=== PATIENT | female | born 1960 ===

== ENCOUNTER 2017-11-05 16:30 | Emergency (ER) | payer SELFPAY ==
[2017-11-05 16:43] VITALS: BP 113/70; PULSE 60; RESP 18; TEMP 98.1; O2SAT 98
--- NOTE | 2017-11-05 17:31 | ED PDOC ---
HPI: Female Pain Time Seen by Provider: 11/05/17 16:43 Chief Complaint (Nursing): Female Genitourinary Chief Complaint (Provider): Female Genitourinary History Per: Patient History/Exam Limitations: no limitations Onset/Duration Of Symptoms: Days Current Symptoms Are (Timing): Still Present Additional Complaint(s): 57 year old female presents to the ED with complaints of dysuria and urinary frequency associated with suprapubic abdominal pain and a mild discomfort to the lower back. Otherwise: (-) fever, (-) chills, (-) vomiting, (-) hematuria, ( -) nausea. PMD: None Provided Past Medical History Reviewed: Historical Data, Nursing Documentation, Vital Signs Vital Signs: Last Vital Signs Temp 98.1 F 11/05/17 16:38 Pulse 60 11/05/17 16:38 Resp 18 11/05/17 16:38 BP 113/70 11/05/17 16:38 Pulse Ox 98 11/05/17 16:38 - Medical History PMH: No Chronic Diseases - Surgical History Surgical History: No Surg Hx - Family History Family History: States: Unknown Family Hx - Home Medications Home Medications: Ambulatory Orders Medication Instructions Recorded Sulfamethoxazole/Trimethoprim 1 tab PO BID #14 tab 11/05/17 [Bactrim DS 800 mg-160 mg] - Allergies Allergies/Adverse Reactions: Allergies Allergy/AdvReac Type Severity Reaction Status Date / Time aspirin Allergy ITCHING Verified 11/05/17 16:38 Review of Systems ROS Statement: Except As Marked, All Systems Reviewed And Found Negative Constitutional: Negative for: Fever Gastrointestinal: Positive for: Abdominal Pain (suprapubic). Negative for: Nausea, Vomiting Genitourinary Female: Positive for: Dysuria, Frequency. Negative for: Hematuria Musculoskeletal: Positive for: Back Pain (mild discomfort to lower back ) Physical Exam - Reviewed Nursing Documentation Reviewed: Yes Vital Signs Reviewed: Yes - Physical Exam Comments: GENERAL APPEARANCE: Patient is awake, alert, oriented x 3, in no acute distress. SKIN: Warm, dry; (-) cyanosis. EYES: (-) conjunctival pallor. ENMT: Mucous membranes moist. Airway patent: (-) stridor. Pharynx: (-) swelling, (-) erythema. NECK: (-) tenderness, (-) stiffness, (-) lymphadenopathy. CHEST AND RESPIRATORY: (-) wheezing; (-) rales, (-) rhonchi, (-) rub; breath sounds equal bilaterally. HEART AND CARDIOVASCULAR: (-) irregularity; (-) murmur, (-) gallop. ABDOMEN AND GI: Soft; (-) tenderness. BACK: (-) CVA tenderness. EXTREMITIES: (-) deformity, (-) edema. NEURO AND PSYCH: Mental status as above; (-) focal findings. - ECG O2 Sat by Pulse Oximetry: 98 (RA) Pulse Ox Interpretation: Normal Medical Decision Making Medical Decision Making: Time: 1643 Plan: -- ED Urine Dipstick Time: 1707 Plan: -- ED Urine Dipstick Time: 1711 Plan: -- Urine Culture -- Urinalysis UA: Results show signs of positive UTI. Advised to follow up with the clinic in 1-2 days without fail. Advised to take medication as prescribed. Return to the emergency room at any time for any new or worsening symptoms. Patient states she fully agrees with and understands discharge instructions. States that she agrees with the plan and disposition. Verbalized and repeated discharge instructions and plan. I have given the patient opportunity to ask any additional questions. Scribe Attestation: Documented by Jamie Ramos, acting as a scribe for Deana Paz PA-C. Provider Scribe Attestation: All medical record entries made by the Scribe were at my direction and personally dictated by me. I have reviewed the chart and agree that the record accurately reflects my personal performance of the history, physical exam, medical decision making, and the department course for this patient. I have also personally directed, reviewed, and agree with the discharge instructions and disposition. Disposition - Clinical Impression Clinical Impression: Urinary tract infection - Patient ED Disposition Is Patient to be Admitted: No Counseled Patient/Family Regarding: Studies Performed, Diagnosis, Need For Followup, Rx Given - Disposition Referrals: [facility] [Outside] Disposition: Routine/Home Disposition Time: 17:15 Condition: GOOD Additional Instructions: Malia por dejarnos atenderlo hoy. Te trataron por janay infeccin del tracto urinario. La atencin mdica de emergencia que recibi hoy estaba dirigida a vika sntomas agudos. Si le prescribieron algn medicamento, llnelo y tome seg n las indicaciones. Vika sntomas pueden tardar varios herrera en resolverse. Regrese al Departamento de Emergencia si vika sntomas empeoran, no mejoran o si tiene algn otro problema. Llame a navid de los mdicos / clnicas a los que warren recomendado que se detallan en el formulario de Informacin de visita del paciente que se incluye en torres paquete de conchis. Traiga todos los documentos que recibi al momento del conchis junto con los medicamentos que est tomando en torres visita de seguimiento. Nuestro tratamiento no puede reemplazar la atencin mdica en curso por parte de un proveedor de atencin primaria (PCP) fuera del departamento de emergencias. Malia por permitir que el equipo de [facility] [employer] sea parte de torres cuidado hoy. Si se realiz janay prueba de cultivo de orina: lo llamaremos para informarle cualquier resultado positivo Prescriptions: Sulfamethoxazole/Trimethoprim [Bactrim DS 800 mg-160 mg] 1 tab PO BID #14 tab Instructions: Urinary Tract Infection, Adult (DC) Forms: [employer] (Sinhala) Print Language: MACEDONIAN - PA / LOCATION MAN / Resident Statement / has reviewed & agrees with the documentation as recorded.
[2017-11-05 17:51] LABS: SQUAMOUS EPITHIAL 5 /hpf (0-5); URINE BACTERIA RARE (<OCC); URINE BILIRUBIN NEGATIVE (NEGATIVE); URINE BLOOD LARGE (NEGATIVE); URINE CLARITY CLOUDY (Clear); URINE COLOR YELLOW (YELLOW); URINE GLUCOSE (UA) NEG (Normal); URINE LEUKOCYTE ESTERASE MOD Leu/uL (Negative); URINE PROTEIN 100 mg/dL (NEGATIVE); URINE UROBILINOGEN 0.2-1.0 mg/dL (0.2-1.0)
== END 2017-11-05 17:41 | disposition home or self-care (01) ==
LOC: H.ER 16:30
DX: N39.0 Urinary tract infection, site not specified (principal)